=== PATIENT | female | born 1955 | race Caucasian/White ===

== ENCOUNTER 2019-07-01 19:11 | Emergency (ER) | payer OTHER ==
[~2019-07-01] VITALS: Ht 165.1 cm; Wt 65.8 kg
[2019-07-01] MEDS ORDERED: TRAZODONE HCL50 MG PO (19:30)
[2019-07-01] MEDS ORDERED: LEXAPRO20 MG PO (19:30)
[2019-07-01] MEDS ORDERED: XANAX 0.25 MG0.25 MG PO (19:30)
[2019-07-01] MEDS ORDERED: SIMVASTATIN80 MG PO (19:31)
[2019-07-01] MEDS ORDERED: KEFLEX500 M1 PO (19:51)
[2019-07-01] MEDS ORDERED: NORCO 5-325 TA1 EAC1 PO (19:51)
[2019-07-01 20:35] VITALS: BP 129/89
== END 2019-07-01 20:36 | disposition home or self-care (01) ==
LOC: M.ERS 19:11
DX: L03.011 Cellulitis of right finger (principal); F41.9 Anxiety disorder, unspecified